=== PATIENT | male | born 1975 | race Caucasian/White ===

== ENCOUNTER 2020-11-21 17:37 | Emergency (ER) | payer OTHER ==
[~2020-11-21] VITALS: Ht 182.9 cm; Wt 90.0 kg
[2020-11-21] MEDS ORDERED: SODIUM CHLORIDE 0.9% 1,000ML IVBOLUS ONE (18:00)
[2020-11-21] MEDS ORDERED: THIAMINE 100MG TABLET PO ONE (18:00)
[2020-11-21] MEDS ORDERED: ONDANSETRON 2MG/ML, 2ML IVPush ONE (18:00)
[2020-11-21] MEDS ORDERED: LORazepam 2 MG/ML, 1ML IVPush ONE (18:00)
--- NOTE | 2020-11-21 18:08 | NUR ---
FIRST CONTACT WITH PT. PT LAYING IN GURNEY, NAD NOTED. PT SOMNOLENT, ARROUSES W PHYSICAL STIM. LIMITED VERBAL TO QUESTIONING; GOOD EYE CONTACT WHEN SPOKEN TO. PERRL. NO OPEN WOUNDS/TRAUMA NOTED. SISTER REPORTS HEAVY ETOH, DENIES FURTHER MEDICAL HX. BP/SPO2 MONITORING IN PLACE. TECH AT BEDSIDE TO PLACE IV. VERBAL ORDERS RECEIVED TO HOLD ATIVAN AND PO MEDICATIONS. IVF HUNG PER ORDER.
[2020-11-21 18:30] LABS: BASOPHILS % (AUTO) 1 % (0-1); EOSINOPHILS % (AUTO) 0 % (1-7); LYMPHOCYTES % (AUTO) 39 % (22-44); MEAN CORPUSCULAR HEMOGLOBIN 31.7 pg (27.5-34.5); MEAN CORPUSCULAR HGB CONC 35.1 g/dL (33.2-36.2); MEAN PLATELET VOLUME 7.2 fL (7.4-10.4); MONOCYTES % (AUTO) 6 % (2-9); NEUTROPHILS % (AUTO) 55 % (42-75); PLATELET COUNT 180 x10^3/uL (130-400); RED BLOOD COUNT 5.47 x10^6/uL (4.38-5.82); RED CELL DISTRIBUTION WIDTH 13.8 % (9.4-14.8)
[2020-11-21 18:34] LABS: MD NO
[2020-11-21 18:36] LABS: ALANINE AMINOTRANSFERASE 43 U/L (12-78); ALBUMIN 3.4 g/dL (3.4-5.0); ANION GAP 10 mmol/L (5-15); CALCIUM 7.4 mg/dL (8.5-10.1); CHLORIDE 102 mmol/L (98-107); CREATININE 0.65 mg/dL (0.7-1.3)
[2020-11-21 18:39] LABS: ALKALINE PHOSPHATASE 108 U/L (45-117)
--- NOTE | 2020-11-21 19:02 | NUR ---
REPORT TO ANDRÉS RN
--- NOTE | 2020-11-21 19:06 | NUR ---
pt awakened and talkative. oriented x3, on cr monitor, and iv present and intact, no swelling or redness. pts sister is at bedside.
--- NOTE | 2020-11-21 19:35 | NUR ---
ACCOUNTANT COST to bedside to eval pt. another liter of NS ordered, and infusing. pt awake and alert, complains of inability of sleeping. calm and cooperative at this time. on cr monitor. call light within reach. bed in low position and side rails x2 are up.
--- NOTE | 2020-11-21 21:00 | NUR ---
Pts sister back to the room at bedside. pt calm and cooperative and awake at this time. iv site intact, no swelling or redness noted.
--- NOTE | 2020-11-21 21:42 | NUR ---
pt given a tray of food with sandwich, and pt tolerate well some food. piv flushed and flushes easy, no swelling, or redness.
[2020-11-21 22:27] VITALS: BP 136/89
--- NOTE | 2020-11-21 22:40 | NUR ---
breathalyzer used to recheck pt. pt blew a 0.359 etoh level. MD made aware. pt will remain here until the level drops to acceptable d/c levels.
--- NOTE | 2020-11-21 23:01 | NUR ---
REPORT RECEIVED FROM MEJIA BOWEN FOR TRANSFER OF PATIENT CARE.
--- NOTE | 2020-11-21 23:12 | NUR ---
pt moved to room 3 for longer hold and repeat breathalyzer. report and care to Joseph BA.
--- NOTE | 2020-11-21 23:19 | NUR ---
FIRST CONTACT WITH PATIENT, PATIENT LAYING IN GURNEY DRINKING SODA, NADN, SISTER AT BEDSIDE, SITTER IN LINE OF SIGHT, NO FURTHER NEEDS AT THIS TIME.
--- NOTE | 2020-11-21 23:44 | NUR ---
BEDSIDE REPORT FROM LISSY, ASSUMING CARE OF PT AT THIS TIME. SISTER IN ROOM.
--- NOTE | 2020-11-22 00:40 | NUR ---
PT UP TO SINK FOR WATER AND BACK TO BED. RESTING COMFORTABLY DENIES NEEDS. SITTER IN VIEW
--- NOTE | 2020-11-22 01:46 | NUR ---
BREATHALYZED .287 AT THIS TIME. PT PROVIDED ICE WATER.
--- NOTE | 2020-11-22 03:19 | NUR ---
PT RESTING ON GURNEY NO NEEDS AT THIS TIME, PT ACTIVELY DENIES ALL INTENTION/ DESIRE TO HARM SELF. STS JUST DRINKS OFEN BECAUSE HE HAS A CRAZY EX . SITTER IN SIGHT FOR SAFETY
--- NOTE | 2020-11-22 04:28 | NUR ---
[facility]
--- NOTE | 2020-11-22 05:19 | NUR ---
[facility]
--- NOTE | 2020-11-22 05:55 | NUR ---
PT AMBULATORY TO SINK TO FILL CUP AT THIS TIME STEADY GAIT
--- NOTE | 2020-11-22 06:05 | NUR ---
PT BREATHALYZED 0.147 AT THIS TIME. PT CONTINUES TO DENY ALL SI. STS DOES NOT WANT TO HARM HIMSELF AND FEELS SAFE TO GO HOME. HAS SISTER AT BEDSIDE AT THIS TIME
--- NOTE | 2020-11-22 06:36 | NUR ---
UPON DC PAPERS BEING PROVIDED AND PIV D/C. PT US TREMULOUS AND UNSTEADY. ERP UPDATED ON PT CONDITION CHANGE ADDITIONAL ORDERS AT THIS TIME
[2020-11-22] MEDS ORDERED: LORazepam 1MG TABLET ONE (06:40)
--- NOTE | 2020-11-22 06:45 | NUR ---
PT MEDICATED PER MAR
--- NOTE | 2020-11-22 06:58 | NUR ---
BEDSIDE REPORT TO REX BA, TRANSFER OF CARE AT THIS TIME
[2020-11-22] MEDS ORDERED: LORazepam 1MG TABLET PO ONE (07:00)
--- NOTE | 2020-11-22 07:15 | NUR ---
PT ABLE TO AMBULATE WITHOUT ASSISTANCE. PT AMBULATED FROM ER WITH FAMILY AFTER RECEIVING DC AND RESOURCES.
== END 2020-11-22 07:18 | disposition home or self-care (01) ==
LOC: ED 21:37
DX: F10.229 Alcohol dependence with intoxication, unspecified (principal); G31.2 Degeneration of nervous system due to alcohol; F33.9 Major depressive disorder, recurrent, unspecified; I10 Essential (primary) hypertension; Y90.0 Blood alcohol level of less than 20 mg/100 ml
CPT/HCPCS: 36415; 80053; 80320; 83735; 85025; 93005; 96360; 99285; J7030; G0480

== ENCOUNTER 2020-11-24 07:40 | Emergency (ER) | payer OTHER ==
[~2020-11-24] VITALS: Ht 195.6 cm; Wt 92.3 kg
[2020-11-24] MEDS ORDERED: ONDANSETRON 2MG/ML, 2ML IVPush ONE (08:00)
[2020-11-24] MEDS ORDERED: THIAMINE 100 MG in SODIUM CHLORIDE 0.9% 50 ML IVPB ONE (08:00)
[2020-11-24] MEDS ORDERED: SODIUM CHLORIDE FLUSH 10ML SYR IVF ONE (08:00)
[2020-11-24] MEDS ORDERED: LORazepam 2 MG/ML, 1ML IVPush PRN (08:00)
[2020-11-24] MEDS ORDERED: SODIUM CHLORIDE 0.9% 1,000ML IVBOLUS ONE (08:00)
[2020-11-24 08:27] LABS: BASOPHILS % (AUTO) 1 % (0-1); EOSINOPHILS % (AUTO) 1 % (1-7); LYMPHOCYTES % (AUTO) 40 % (22-44); MEAN CORPUSCULAR HEMOGLOBIN 30.9 pg (27.5-34.5); MEAN CORPUSCULAR HGB CONC 34.2 g/dL (33.2-36.2); MEAN PLATELET VOLUME 7.9 fL (7.4-10.4); MONOCYTES % (AUTO) 7 % (2-9); NEUTROPHILS % (AUTO) 52 % (42-75); PLATELET COUNT 113 x10^3/uL (130-400); RED BLOOD COUNT 4.94 x10^6/uL (4.38-5.82); RED CELL DISTRIBUTION WIDTH 13.6 % (9.4-14.8)
[2020-11-24 08:32] LABS: ALANINE AMINOTRANSFERASE 43 U/L (12-78); ALBUMIN 3.3 g/dL (3.4-5.0); ANION GAP 10 mmol/L (5-15); CALCIUM 8.9 mg/dL (8.5-10.1); CHLORIDE 100 mmol/L (98-107); CREATININE 0.79 mg/dL (0.7-1.3)
[2020-11-24 08:34] LABS: ALKALINE PHOSPHATASE 89 U/L (45-117); BILIRUBIN,TOTAL 1.3 mg/dL (0.2-1.0); MD NO; TOTAL PROTEIN 6.9 g/dL (6.4-8.2)
--- NOTE | 2020-11-24 08:40 | NUR ---
PT GOING TO BATHROOM, HAS URINE CUP FOR SAMPLE.
[2020-11-24] MEDS ORDERED: POTASSIUM CHLORIDE 20 MEQ TAB.ER.PRT ONE (08:58)
[2020-11-24] MEDS ORDERED: ONDANSETRON 2MG/ML, 2ML ONE (08:58)
[2020-11-24] MEDS ORDERED: LORazepam 2 MG/ML, 1ML ONE (08:58)
[2020-11-24] MEDS ORDERED: POTASSIUM CHLORIDE 20 MEQ TAB.ER.PRT PO SCH (09:00)
--- NOTE | 2020-11-24 09:12 | NUR ---
IV STARTED, ORDERED MEDS GIVEN, ORDERED FLUIDS INFUSING. PT URINE WALKED TO LAB. PT IN HOSPITAL GOWN. PT MINIMALLY TREMULOUS IN BILAT HANDS. WILL CONTINUE TO MONITOR.
[2020-11-24 10:00] VITALS: BP 129/94
== END 2020-11-24 10:56 | disposition home or self-care (01) ==
LOC: ED 08:13
DX: F10.139 Alcohol abuse with withdrawal, unspecified (principal); R45.1 Restlessness and agitation; I10 Essential (primary) hypertension; E87.6 Hypokalemia; Y90.9 Presence of alcohol in blood, level not specified
CPT/HCPCS: 36415; 80053; 80320; 85025; 96365; 96375; 99284; J2060; J2405; J3411; J7030; G0480

== ENCOUNTER 2021-02-12 16:28 | Emergency (ER) | payer OTHER ==
[~2021-02-12] VITALS: Ht 182.9 cm; Wt 91.6 kg
--- NOTE | 2021-02-12 17:00 | NUR ---
PT O ROOM. CARDIAC, NIBP AND O2 MONITORING IN PLACE. PT IS A 45 YR OLD MALE WITH HX OF ETOH ABUSE. PT STATES HE WENT ON A RUNNER FOR THE LAST 3 DAYS. PT STATES COFFEE GROUND EMISIS WITH BLACK TARRY STOOLS. PT DENIES HX OF SEIZURES WHEN WITHDRAWALING.
--- NOTE | 2021-02-12 17:38 | NUR ---
PIV PLACED LABS DRAWN. PT IN BED WITH ALL MONITORING EQUIP IN PLACE.
[2021-02-12] MEDS ORDERED: SODIUM CHLORIDE 0.9% 1,000ML IVBOLUS ONE (18:30)
[2021-02-12] MEDS ORDERED: PANTOPRAZOLE 80 MG in SODIUM CHLORIDE 0.9% 50 ML IVPB ONE (18:30)
[2021-02-12] MEDS ORDERED: SODIUM CHLORIDE FLUSH 10ML SYR IVF ONE (18:30)
[2021-02-12 18:33] LABS: BASOPHILS % (AUTO) 0 % (0-1); EOSINOPHILS % (AUTO) 0 % (1-7); LYMPHOCYTES % (AUTO) 7 % (22-44); MEAN CORPUSCULAR HEMOGLOBIN 30.3 pg (27.5-34.5); MEAN CORPUSCULAR HGB CONC 34.8 g/dL (33.2-36.2); MEAN PLATELET VOLUME 9.8 fL (7.4-10.4); MONOCYTES % (AUTO) 3 % (2-9); NEUTROPHILS % (AUTO) 90 % (42-75); PLATELET COUNT 83 x10^3/uL (130-400); RED CELL DISTRIBUTION WIDTH 13.7 % (9.4-14.8)
[2021-02-12 18:46] LABS: ALANINE AMINOTRANSFERASE 81 U/L (12-78); ALBUMIN 3.6 g/dL (3.4-5.0); ANION GAP 18 mmol/L (5-15); CALCIUM 8.6 mg/dL (8.5-10.1); CHLORIDE 84 mmol/L (98-107); CREATININE 0.75 mg/dL (0.7-1.3); INTERNATIONAL NORMALIZED RATIO 0.98 (0.93-1.1); PROTHROMBIN TIME 10.5 Seconds (9.6-11.5)
[2021-02-12 18:48] LABS: ALKALINE PHOSPHATASE 105 U/L (45-117); BILIRUBIN,TOTAL 1.9 mg/dL (0.2-1.0); TOTAL PROTEIN 7.2 g/dL (6.4-8.2)
--- NOTE | 2021-02-12 18:49 | NUR ---
BEDSIDE REPORT FROM MENG RN, PT CARE TRANSFERRED AT THIS TIME. PT NAD, RESTING ON GURNEY, BED IN LOWEST, RAILS ENGAGED, DENIES ADDITIONAL QUESTIONS OR NEEDS AT THIS TIME, WCTM. WAITING FOR LAB RESULTS.
[2021-02-12 19:00] LABS: MD SCAN
[2021-02-12] MEDS ORDERED: POTASSIUM CHLORIDE 20 MEQ TAB.ER.PRT ONE (19:17)
[2021-02-12] MEDS ORDERED: MAGNESIUM SULFATE/D5W 0 ML ONE (19:17)
[2021-02-12] MEDS ORDERED: MAGNESIUM SULFATE 1 GM in SODIUM CHLORIDE 0.9% 50 ML IV ONE (19:30)
[2021-02-12] MEDS ORDERED: POTASSIUM CHLORIDE 20 MEQ PACKET PO ONE (19:30)
[2021-02-12] MEDS ORDERED: POTASSIUM CHLORIDE 20 MEQ PACKET ONE (19:31)
--- NOTE | 2021-02-12 20:35 | NUR ---
PT RESTING ON GURNEY, NAD, LIGHTS DIMMED FOR COMFORT, BED IN LOWEST, RAILS ENGAGED, CALL LIGHT ON LAP, DENIES ADDITIONAL QUESTIONS OR NEEDS, WCTM .
[2021-02-12 21:11] VITALS: BP 121/78
--- NOTE | 2021-02-12 21:12 | NUR ---
Patient given discharge instructions and they have confirmed that they understand the instructions. Patient ambulatory with steady gait. NAD, DENIES ADDITIONAL QUESTIONS OR NEEDS AT THIS TIME. NO PERSONAL BELONGINGS LEFT IN ROOM AFTER DC
== END 2021-02-12 21:26 | disposition home or self-care (01) ==
LOC: ED 19:17
DX: E87.6 Hypokalemia (principal); E87.1 Hypo-osmolality and hyponatremia; R11.2 Nausea with vomiting, unspecified; R00.0 Tachycardia, unspecified; I10 Essential (primary) hypertension; Z87.891 Personal history of nicotine dependence
CPT/HCPCS: 36415; 80053; 80320; 85025; 85610; 85730; 86850; 86900; 93005; 96365; 96367; 99285; C9113; J3475; J7030; G0480